=== PATIENT | male | born 1975 | race Caucasian/White ===

== ENCOUNTER 2024-08-08 18:51 | Inpatient (IN) | payer OTHER, SELFPAY ==
[2024-08-08] VITALS (9 sets, daily range): BP systolic 103–165; BP diastolic 87–126; BMI 31.0; BMI 31.4
--- NOTE | 2024-08-08 17:09 | ED.GENMED ---
History of Present Illness
General
Chief Complaint: Heart Rate Problem
Source: patient and spouse
Exam Limitations: none
Time Seen by Provider: 08/08/24 16:53
Nursing documentation reviewed up to this point in time: agreed with
History of Present Illness
History of Present Illness:
48-year-old male limited past medical history referred by his PCP for fast heart rate, A-fib, first visit there, patient's had 3 course of antibiotics for Lyme disease, states he has not quite recovered from that--no fevers had some indigestion last
night after eating Pasta, no shortness of breath, he vapes, uses caffeine no amphetamines, no cocaine he works in the [employer] industry does not drink alcohol no history of thyroid issue
Past History
Past History
ED Past Medical History: Negative Arrthythmia
ED Past Surgical History: Negative Cardiac
Social History
Tobacco: Non-smoker
Alcohol: None
Drug: None
Personal:
Living: with family
Employment: Employed
Review of Systems
Review of Systems
All Other Systems: Not applicable
Constitutional: Denies fever, weight loss or fatigue
EENT: Reports no symptoms
Respiratory: Reports no symptoms
Cardiac: Reports no symptoms
ABD/GI: Reports no symptoms
: Reports no symptoms
Musculoskeletal: Reports no symptoms
Skin: Reports no symptoms
Neurological: Reports no symptoms
Hematologic/Lymphatic: Reports no symptoms
Psychiatric: Reports no symptoms
Phy Exam
Physical Exam
Physical Exam:
Physical Exam
General: no apparent distress, not acutely ill
Neck: No goiter
Heart: Tachycardic
Lungs: no acute respiratory distress. clear bilaterally
Abdomen: Nontender
Neuro: alert and oriented. no focal neurological deficits
Skin: no rash
Psychiatric: well kept. interactive and cooperative
Extremities: no edema. no calf tenderness.
Course
Orders/Labs/Results
Orders:
Orders
08/08/24 16:22
Electrocardiogram (*1) Urgent
Reason for Study: Atrial Fibrillation
08/08/24 16:23
EKG- Treatment ONCE
08/08/24 17:06
Cardiac Monitoring- Treatment ONCE
Diltiazem HCl [Cardizem] 20 mg IV NOW STA
CR Chest - 2 Views Urgent
Comment:
Reason For Exam: hr 130
08/08/24 17:10
Complete Blood Count/With Diff Urgent
08/08/24 17:11
Comprehensive Metabolic Panel Urgent
Magnesium Urgent
NT-proBNP Urgent
PTT Urgent
Prothrombin Time Urgent
TSH Urgent
Troponin I Urgent
08/08/24 17:15
Diltiazem 125 mg/125 ml Nss [Cardizem] 125 mg in 125 ml IV PER PROTOCOL
Initial dose in mg/hr, then titrate:: 5
Titrate to keep:: Heart rate 80-100 bpm
Titrate by mg/hr:: 5 mg/hr
Frequency of titrations (minutes):: 15
Maximum dose in mg/hr:: 15
08/08/24 17:35
Heparin 4,000 units IV NOW STA
08/08/24 17:[address] Non Medication Order As Directed
Physician Order: PTT 6 hours after initial start of Heparin infusion
Above order entered?: Yes
08/08/24 17:45
Heparin 76247 Units/250 ml 25,000 units in 250 ml IV PER PROTOCOL
Weight to be used for heparin protocol in kilograms (kg):: 107.955
Protocol:: Cardiac Tx/Acute Coronary
PTT Goal Range to be used:: PTT 73 to 111 seconds
Order type:: Initial
INITIAL Infusion Dose (UNITS/KG/hr) & then follow protocol:: 12 units/kg/hr
Infusion Dose in UNITS/hr & then follow protocol (UNITS/hr):: 1,000
INFUSION RATE in mL/hr & then follow protocol (mL/hr):: 10
PTT less than or equal to 64 seconds:: Increase rate by 200 units/hr (+ 2 mL/hr)
PTT 64.1 to 72.9 seconds:: Increase rate by 100 units/hr (+ 1 mL/hr)
PTT 73 to 111 seconds:: Target Range. No change in rate.
PTT 111.1 to 130.9 seconds:: Decrease rate by 100 units/hr (- 1 mL/hr)
PTT 131 to 199.9 seconds:: HOLD for 1 hr. Then decrease rate by 200 units/hr (- 2 mL/hr)
PTT greater than or equal to 200 seconds:: HOLD for 2 hrs & Notify Provider. Then decrease by 200 units/hr (-
2 mL/hr)
Lab follow-up:: Each change, PTT q6h until 2 consecutive are therapeutic. Then PTT
daily.
08/08/24 18:30
Admit/Transfer Patient As Directed
Co-Sign Provider:
Level of Care: Inpatient admission
Assign to:: IVU
Physician / Group: brenna mcfarland
Diagnosis: atrial fib
Reason for Hospitalization: atrial fib
Expected length of stay greater than two midnights?: Yes
ELOS- Estimated Length of Stay in days: 3
I certify the patient meets the requirements for IP care: Yes
08/08/24 18:31
Code Status As Directed
Resuscitation Status: Full Code
PRN Pain Medication Management As Directed
May give lesser potent ordered pain med per pt: Yes
preference::
Protocol:: Medication orders for pain may be administered in a
manner that supports deferring to patient preference
when the pt is:
- Requesting an ordered lesser potent pain medication.
Least to most potent pain medications are defined
as: acetaminophen < NSAID < tramadol < opioids
(morphine, oxycodone, hydromorphone).
- Requesting a lesser dose of the same medication IF
ORDERED.
- Requesting a less intrusive route of administration
if both routes are prescribed by the provider (PO <
IV).
08/08/24 17:10
08/08/24 17:11
Vital Signs
Initial and Last Documented VS:
Initial Vital Signs
Temp Pulse Resp BP Pulse Ox
98.2 F 136 20 165/126 96
08/08/24 16:29 08/08/24 16:29 08/08/24 16:29 08/08/24 16:29 08/08/24 16:29
Last Documented Vital Signs
Temp Pulse Resp BP Pulse Ox
98.2 F 111 13 118/95 95
08/08/24 16:29 08/08/24 19:00 08/08/24 19:00 08/08/24 19:10 08/08/24 19:00
MDM/Problems Addressed
Differential Diagnosis Includes:
New onset A-fib SVT a flutter hyperthyroid toxic metabolic question related to Lyme
MDM/Problems Addressed:
Tachycardia
Chronic conditions affecting care:
Lyme
Acute Exacerbation and/or Progression of Chronic Illness:
Lyme
*Radiology
Radiology exam reviewed: preliminary read by ED provider
*Pulse Oximetry
Patient hypoxic: no
*EKG
Interpreted by ED Provider?: Yes
Interpretation: abnormal
Comparison EKG: no comparison EKG present
Heart Rate: 140
Rate: tachycardiac
Rhythm: a-fib
Ischemia: non-specific ST changes
*Field Crop Farming Supervisor Interpretation
Rate: tachycardiac
Interpretation: abnormal
Heart Rate: 140
Rhythm: a-fib
*Critical Care Note
Total Time (30-74mins, 75-104mins- exclusive of procedures): 30
ED Attending Note
-
Portions of this chart may have been created with voice recognition software.� Occasional wrong word or��sound alike� substitutions may have occurred due to the inherent limitations of voice recognition software.
Discharge Plan
Interventions
Interventions:
*Risk Screen - Suicide Last Done: 08/08/24 17:09
*General Assessment Last Done: 08/08/24 16:29
*Neglect/Abuse Screening Last Done: 08/08/24 17:09
*ED- Fall Risk Assessment Last Done: 08/08/24 17:09
*ED COVID-19 Vaccine History Last Done: 08/08/24 17:09
ED- Cardiac Assessment Last Done: 08/08/24 18:56
ED- Pulmonary Assessment Last Done: 08/08/24 18:56
[2024-08-08] MEDS: CARDIZEM 20 MG IV (17:16)
[2024-08-08 17:18] LABS: % Basophils 0.8 % (0-2); % Eosinophils 1.6 % (0-6); % Immature Granulocytes 0.4 % (0-0.5); % Monocytes 7.3 % (1.7-9.3); % Neutrophils 58.9 % (42.2-75.2); Absolute Basophils 0.1 10^3/uL (0-0.2); Absolute Eosinophils 0.1 10^3/uL (0-0.7); Absolute Lymphocytes 2.4 10^3/uL (1.2-3.4); Absolute Monocytes 0.6 10^3/uL (0.1-0.6); Absolute Neutrophils 4.5 10^3/uL (1.4-6.5); Hematocrit 43.4 % (39.0-52.0); Hemoglobin 15.7 g/dL (13.0-18.0); Mean Corp Hgb Conc. 36.2 g/dL (33.0-37.0); Mean Corpuscular Hgb 30.7 pg (27.0-31.0); Mean Corpuscular Volume 84.9 fL (80.0-94.0); Mean Platelet Volume 10.4 fL (7.4-10.4); Nucleated Red Blood Cells % 0 % (-); Platelet Count 175 10^3/uL (130-400); Red Blood Cell Count 5.11 10^6/uL (4.70-6.10); Red Cell Dist. Width 12.8 % (11.5-14.5); White Blood Cell Count 7.6 10^3/uL (4.8-10.8)
[2024-08-08] MEDS: CARDIZEM 125 IV (17:18)
[2024-08-08 17:28] LABS: INR 0.98; PT 13.3 Sec (11.4-14.6)
[2024-08-08 17:29] LABS: APTT 29.7 Sec (23.4-35.0)
[2024-08-08 17:34] LABS: ALT (SGPT) 40 U/L (0-50); AST (SGOT) 28 U/L (17-59); Albumin 4.9 g/dl (3.5-5.0); Alkaline Phosphatase 85 U/L (38-126); Blood Urea Nitrogen 13 mg/dl (9-20); Calcium 9.2 mg/dl (8.4-10.2); Carbon Dioxide 26 mmol/L (22-30); Chloride 105 mmol/L (98-107); Estimated Creatinine Clearance > 125 ml/min; Glucose 88 mg/dl (70-99); Magnesium 2.2 mg/dl (1.6-2.3); Potassium 3.7 mmol/L (3.5-5.1); Sodium 140 mmol/L (135-145); Total Bilirubin 0.7 mg/dl (0.2-1.3); Total Protein 7.6 g/dl (6.3-8.2); eGFR > 60.00
[2024-08-08 17:51] LABS: NT-proBNP 290 pg/ml; Troponin I < 0.012 ng/ml
--- NOTE | 2024-08-08 18:10 | HPS.HSE ---
Family Physician
-
Family Physician: Xi Hanson MD
Chief Complaint
-
fast heart rate
History of Present Illness
48-year-old male with no significant PMH presented to us with fast heart rate. Patient was diagnosed with Lyme disease back in October because they saw a bullous rash on his leg. he took 3 doses of doxycycline. Last dose was in December. Patient
stated lethargic, stiff neck and palpitation since December . Patient denies any headache, dizziness or syncope. Patient denies fever, chills, chest pain, short of breath. Patient denied abdominal pain, nausea, vomiting or diarrhea. Patient denies
dysuria hematuria . Patient so PCP for the first time . His heart rate was noted elevated .EKG obtained With impression of A-fib. Patient was asked to come to the ER.
Upon arrival patient was in A-fib with RVR. Cardizem and heparin started in ER. Admitted for further management
Medical History
Past Medical History
Past Medical History: Reports Other
Additional Past Medical History:
Lyme disease
Past Surgical History: Reports None
Social History
Tobacco: Vaping
Alcohol: None
Drug: None
Personal:
Living: With Family
Family History
Family History: Not pertinent
Allergies / Home Medications
Allergies reflects when Allergies were last updated in [facility].
Home Medications with original date entered in [facility]
Allergy/Medication List:
Allergies
Allergy/AdvReac Type Severity Reaction Status Date / Time
codeine Allergy Unknown Unknown Verified 08/08/24 17:07
Sulfa (Sulfonamide Allergy Unknown Unknown Verified 08/08/24 17:07
Antibiotics)
Home Medications
No Meds [No Current Medications] 08/08/24
Review of Systems
-
Constitutional: Reports Fatigue
EENT: Reports No Symptoms
Respiratory: Reports No Symptoms
Cardiac: Reports Palpitations
Abdomen/GI: Reports No Symptoms
: Reports No Symptoms
Musculoskeletal: Reports No Symptoms
Skin: Reports No Symptoms
Neurological: Reports No Symptoms
Endocrine: Reports No Symptoms
Hematologic/Lymphatic: Reports No Symptoms
Psych: Reports No Symptoms
Physical Exam
Vital Signs
Vital Signs
Temp Pulse Resp BP Pulse Ox
98.2 F 134 23 136/120 97
08/08/24 16:29 08/08/24 17:16 08/08/24 17:15 08/08/24 17:16 08/08/24 17:15
Physical Exam
General: Well Developed, Well Nourished and No Apparent Distress
HEENT: NormoCephalic, Moist mucous membranes and Atraumatic
Respiratory: Clear
Cardiac: Irregular Rhythm and Tachycardia; No Murmur or Rub
GI: Soft, Non Tender, Non Distended and Normal Bowel Sounds; No Organomegaly
Rectal: Deferred by Provider
Musculoskeletal: No Clubbing, No Cyanosis and No Edema
Skin: No Rash
Neuro: AO x 3 and Nonfocal/grossly intact
Psych: Calm
Laboratory Results
-
08/08/24 17:10
08/08/24 17:11
Laboratory Results
PT 13.3 Sec (11.4-14.6) 08/08/24 17:11
INR 0.98 08/08/24 17:11
APTT 29.7 Sec (23.4-35.0) 08/08/24 17:11
Total Bilirubin 0.7 mg/dl (0.2-1.3) 08/08/24 17:11
AST 28 U/L (17-59) 08/08/24 17:11
ALT 40 U/L (0-50) 08/08/24 17:11
Alkaline Phosphatase 85 U/L (38-126) 08/08/24 17:11
Troponin I < 0.012 ng/ml 08/08/24 17:11
Data Reviewed
-
Lab Data: Labs Reviewed by me
Impression/Plan
-
# A-fib with RVR
-EKG with A-fib with variable AV block and rapid ventricular rate
-IV Cardizem and heparin drip in ER
-obtain ECHO
-Cardiology consulted
# DVT prophylaxis
-Heparin drip
# CODE STATUS
-Full code
[2024-08-08] MEDS: HEPARIN 4000 UNITS IV (19:05)
[2024-08-08] MEDS: HEPARIN 25000 UNITS/250 ML IV (19:06)
--- NOTE | 2024-08-08 19:13 | W.PN.UPDATE ---
Update Note
Progress Note Update
This note serves as an addendum to the H&P by mid level clinician JESE Pauline RANGEL
HPI
48M HX Vaping, Dxed Lyme dz in October 2023, s/p PO Doxy , last dose in December 2023 no significant PMH seen at ER
- pw fast heart rate. Patient was diagnosed with Lyme disease back in October. Last dose was in December.
- Patient so PCP for the first time and noted fast HR. EKG POS for fast AF. Thus sent to ER
ROS:
denies fever, chills, chest pain, short of breath. Patient denied abdominal pain, nausea, vomiting or diarrhea. Patient denies dysuria hematuria .
Vital Signs
Temp Pulse Resp BP Pulse Ox
98.2 F 111 10 118/95 96
08/08/24 16:29 08/08/24 18:30 08/08/24 18:30 08/08/24 19:10 08/08/24 18:56
PE
Gen: NAD
HEENT: anicteric
Neck:
Lungs: CTA
Cor: Irregular Rhythm and Tachycardia; No Murmur
Abdomen: Soft, Non Tender, Non Distended
METAL TILE SETTER: AAO3
MS: no edma
Psych: calm
Data
Unremarkable labs
NEG TPNI and . Insignificant pro BNP
08/08/24
17:11
Troponin I < 0.012
Xbh-G-[id number] Pept 290
EKG
ATRIAL FLUTTER WITH VARIABLE A-V BLOCK and rapid ventricularrate
LEFT AXIS DEVIATION
NON-SPECIFIC INTRA-VENTRICULAR CONDUCTION BLOCK
MINIMAL VOLTAGE CRITERIA FOR LVH, MAY BE NORMAL VARIANT ( Florencio product )
INFERIOR INFARCT , AGE UNDETERMINED
T WAVE ABNORMALITY, CONSIDER ANTEROLATERAL ISCHEMIA
ABNORMAL ECG
NO PREVIOUS ECGS AVAILABLE
Confirmed by SHEBA CONTI MD, EMMA ([id number]) on 08/08/2024 6:05:11 PM
NO PRIOR hospitalist admission:
ASSESSMENT & PLAN
New onset Prx AF with RVR A-fib with RVR
-EKG with A-fib with variable AV block and rapid ventricular rate
-IV Cardizem gtt
- Heparin gt
- obtain ECHO
- DCA card consulted
OFF NOTE: He wants to attend of friend at 11 am Thursday. He seems determine to attend
HX Lyme's dz in October 2023 following onset of rash ( target lesions like ? ) and evaluation
Report S/p 4 weeks each x 3 courses of PO Doxycycline , October, November and December
DVT Px: on Heparin gtt
Ful code
IVU
--- NOTE | 2024-08-08 20:40 | PTCARENOTE ---
Rec'd report from ED RN; Rec'd pt AAOx3 w/no c/o CP or SOB. Pt able to ambulate unassisted into the rm. Pt w/IV Cardizem and IV Heparin infusing through patent IV lines as ordered. Pt is A-flutter on telemetry monitoring. Pt oriented to rm & given
Afib book. Pt w/call rutledge within reach & plan of care ongoing.
[2024-08-09 04:28] VITALS: BMI 31.5
[2024-08-09 04:33] VITALS: BP 110/91
[2024-08-09] MEDS: CARDIZEM 125 IV (05:28)
--- NOTE | 2024-08-09 06:40 | W.PN.HOSP.TC ---
Addendum entered and electronically signed by Wendi Pedersen MD 08/09/24 15:06:
Addendum
Patient underwent cardioversion, currently sinus rhythm and requesting to go home.
I went over discharge directions with patient, his at bedside. Counseled regarding compliance with medications. Explained potential side effects for each medication and he verbalized understanding. Given prescription to do blood work in 1 to
2 weeks to monitor renal function and potassium level.
Patient said that he would definitely take Eliquis, he was not sure about Toprol and lisinopril. Patient feels that healthy lifestyle modification is his first approach before starting medications. Explained importance of treating cardiomyopathy
and a flutter. Patient verbalized understanding and remained stable hemodynamically.
Total discharge time spent to see the patient, examine the patient, review data and lab results, discuss discharge plan with patient, , centrifuge separator operator nursing staff around 7minutes
Original Note:
Today's Communication/Plan
-
keep NPO for now
c/w Cardizem & heparin gtt
Echo of heart
Assessment / Plan
Assessment / Plan
Physical Exam
General: Well Developed, Well Nourished and No Apparent Distress
HEENT: Normocephalic, Moist mucous membranes and Atraumatic
Respiratory: Clear
Cardiac: Irregular Rhythm and Tachycardia; Split heart sound/ gallop rhythm
GI: Soft, Non Tender, Non Distended and Normal Bowel Sounds
Musculoskeletal: No Clubbing, No Cyanosis and No Edema
Skin: No Rash
Neuro: AO x 3 and Nonfocal/grossly intact
Psych: Calm
# New onset A-fib with RVR
-EKG with Atrial flutter with variable AV block and rapid ventricular rate
Heart rate still uncontrolled mostly
-IV Cardizem and heparin drip in ER
[id number] around 0 with no hx of HTN in past.
Patient reports Lyme disease diagnosis in November 2023.
Order echo
Normal TSH
No fever
CXR no pulmonary edema
-Cardiology consulted
# HTN urgency , resolving
on Cardizem gtt
# DVT prophylaxis
-Heparin drip
# CODE STATUS
-Full code
Total time spent to see the patient, examine the patient,review data and lab results, discuss treatment plan with pt, nursing staff around 55 minutes
Anticipated Discharge: 24 - 48 hours
Subjective/Interval History
-
Date of Service: August 09, 2024
No chest pain or sob
Feels racing heart beats
Objective Data
-
Labs:
Laboratory Results
08/09/24 08/09/24
01:03 07:30
APTT 31.0 Pending
Vital Signs:
Vital Signs
Temp Pulse Resp BP Pulse Ox
97.6 F 102 16 110/91 96
08/09/24 04:28 08/09/24 04:33 08/09/24 04:28 08/09/24 04:33 08/09/24 04:33
I&O
08/07/24 08/08/24 08/09/24
06:59 06:59 06:59
Intake Total 960 / 960
Balance 960 / 960
[2024-08-09 08:14] LABS: APTT 53.4 Sec (23.4-35.0)
[2024-08-09 08:21] VITALS: BP 123/91
--- NOTE | 2024-08-09 08:55 | PTCARENOTE ---
Assumed care. Patient NPO. Anxious about being discharged today. Afib HR 80-100's. Cardizem and Heparin gtt. VSS, family at bedside
--- NOTE | 2024-08-09 09:14 | CON.CAR ---
Addendum entered and electronically signed by Scott Enriquez MD 08/09/24 13:38:
Patient underwent successful ELBA/direct-current cardioversion with oriental orthodox of normal sinus rhythm.
Left ventricular systolic function was moderately reduced at the time of ELBA.
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 Will discharge on Toprol and lisinopril. Can discuss ischemic evaluation at follow-up.
Eventual repeat echo to reassess LV function.
Should continue Eliquis for minimum 1 month following cardioversion.
Addendum entered and electronically signed by Scott Enriquez MD 08/09/24 10:51:
I saw and examined the patient.
The Cable Splicing Technician's note was reviewed and I agree with the note.
Comment: Briefly, 48-year-old man with no significant past medical history who presents with atrial flutter with rapid ventricular response.
Patient tells me that he was establishing care with a primary care physician, reports he was last seen 15 years ago, and was found to be tachycardic in the office. ECG there identified atrial flutter with rapid ventricular response and he was
referred to [facility] emergency department for further evaluation. He was started appropriately on diltiazem and heparin drips and admitted to the IVU overnight.
Patient tells me he is asymptomatic in rapid atrial flutter, not experiencing any palpitations, dyspnea or lower extremity edema.
Rates have been difficult to control here, would recommend direct-current cardioversion to restore sinus rhythm. As duration of atrial flutter is unclear we will plan for ELBA prior to assess for intracardiac thrombus.
Would recommend discharging on oral anticoagulation for minimum 1 month ([id number] equals 0)
Discussed CTI ablation, can be discussed further as an outpatient
Discussed with patient and family at bedside
Original Note:
Consultation
Consultation Request
Date/Time Consultation Performed: 08/09/24
Requesting Provider: Dr. Pedersen
Performing Provider: Isabel Ray PA-C for Dr. Enriquez
Reason for Consultation: aflutter
Medical History
-
Chief Complaint: aflutter
History of Present Illness:
Patient is a 48-year-old male with past medical history of Lyme disease diagnosed 10/2023 status post 3 courses of doxycycline. He reports starting in December 2023 he noted elevated heart rate, however was not seen by a physician for this until
yesterday when he was establishing care with a primary care provider. He was noted by EKG to be in a flutter with RVR and was referred to the ER for further evaluation. He denies chest pain, shortness of breath, lower extremity edema, fevers. He
denies history of thyroid disease. He denies significant caffeine intake or alcohol use. He does vape but denies drug use. Cardiology consulted for evaluation.
PMH:
History of Lyme disease 10/2023
History of slipped capital femoral epiphysis
History of multiple concussions
Vapes nicotine
Past Medical History
Past Medical History: Other (in HPI)
Social History
Tobacco: Vaping
Alcohol: None
Personal:
Living: With Family
Employment: Employed
Family History
Family History: Reviewed & Not Pertinent
Allergies / Home Medications
Allergy/AdvReac Type Severity Reaction Status Date / Time
codeine Allergy Unknown Unknown Verified 08/08/24 17:07
Sulfa (Sulfonamide Allergy Unknown Unknown Verified 08/08/24 17:07
Antibiotics)
�Medication �Instructions �Recorded �Confirmed �Type
No Meds [No Current Medications] 08/08/24 08/08/24 History
Review of Systems
-
History Source: Patient and Family
All other systems: Negative unless noted
Physical Exam
Vital Signs
Temp Pulse Resp BP Pulse Ox
97.7 F 86 18 123/91 96
08/09/24 08:20 08/09/24 08:30 08/09/24 08:20 08/09/24 08:21 08/09/24 08:21
Lab Results
08/08/24 17:10
08/08/24 17:11
Troponin I < 0.012 ng/ml 08/08/24 17:11
Gju-X-Pxxmndtkbsa Pept 290 pg/ml 08/08/24 17:11
Physical Exam
General: No Apparent Distress and Comfortable
HEENT: Normocephalic, Anicteric and Moist Mucous Membranes
Respiratory: Clear and Non Labored Respirations
Cardiac: S1/S2 and Irregular Rhythm
GI: Non Tender, Non Distended and Normal Bowel Sounds
Musculoskeletal: No Clubbing, No Cyanosis and No Edema
Skin: Warm and Dry
Neuro: AO x 3
Impression / Plan
-
[employer] Sales Consultant: none prior to admission
Assessment:
Typical atrial flutter with RVR
History of Lyme disease 10/2023
History of slipped capital femoral epiphysis
History of multiple concussions
Vapes nicotine
ECHO 08/09/24: pending
Plan:
-Patient was referred from primary care provider's office due to atrial flutter with RVR
-Continue IV heparin. [id number] score of 0.
-Continue IV Cardizem, remains in atrial flutter with elevated HRs
-discussed ELBA/CV with patient and will plan to proceed today. NPO
-check echo
-Trop negative x1
-TSH WNL
-would consider for OP stress testing
-discussed OP EP follow up to discuss aflutter ablation.
-d/w nursing
-d/w patient and family at bedside
Data Reviewed
-
EKG: Tracing Personally Visualized and interpreted
Labs: Labs Reviewed by me
Old Records: Reviewed
[2024-08-09 11:03] VITALS: BP 119/88
--- NOTE | 2024-08-09 12:09 | PTCARENOTE ---
Report given earlier, patient sent to the agriculture laboratory technician
--- NOTE | 2024-08-09 13:53 | W.PN.UPDATE ---
Update Note
Progress Note Update
Patient underwent successful ELBA/cardioversion. He was noted by ELBA to have EF of 35 to 40%, suspected tachycardia mediated as he believes he went into a flutter in December 2023. Toprol and lisinopril have been added to be continued upon discharge.
For at least 30 days post cardioversion he will need Eliquis 5 mg twice daily. Will transition patient this afternoon from IV heparin. His admitted that patient does drink multiple energy drinks daily. He has been counseled to avoid excess
caffeine as well as significant salt intake. Reviewed results of ELBA with patient and family. Also discussed vaping cessation. Outpatient cardiac follow-up with EP has been arranged. Would consider for outpatient ischemic eval followed by
flutter ablation. Okay for discharge later today. Discussed with nursing
[2024-08-09 13:54] VITALS: BP 122/94
[2024-08-09 14:00] VITALS: BP 118/88
--- NOTE | 2024-08-09 14:14 | PTCARENOTE ---
Patient received from general laborer awake and alert. NSR HR 60's, BP 118/88, POX 100 room air. Heparin gtt infusing at 1400 units/hr. Plan of care reviwed, call rutledge in reach
[2024-08-09 14:57] VITALS: BP 128/87
[2024-08-09] MEDS: ELIQUIS 5 MG PO (15:09)
[2024-08-09] MEDS: ZESTRIL 5 MG PO (15:09)
[2024-08-09] MEDS: TOPROL XL 25 MG PO (15:10)
--- NOTE | 2024-08-09 15:11 | W.DCSUMMARY ---
Discharge Summary
Discharge Data
Date of Admission: 08/08/24
Date of Discharge: 08/09/24
-
Pending Results: No
Hospital Course
48 years old male presented with elevated heart rate. Patient knew he had elevated heart rate at times since few months ago. He denies chest pain. He denies shortness of breath or leg edema. No history of fever or chills. Patient was found to
have atrial flutter. Research Technician was consulted. Thyroid-stimulating hormone was normal. Patient was started on intravenous heparin and intravenous Cardizem. He had negative troponin. Patient had successful ELBA/cardioversion. He converted to
sinus rhythm. Transesophageal cardiogram showed left ventricular ejection fraction of 35 to 40%. 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 Patient was started on low-dose Toprol, lisinopril and Eliquis. Patient was made aware that he
would need to take Eliquis for at least 30 days post cardioversion. Patient was counseled regarding potential side effects of Toprol, lisinopril and Eliquis. He verbalized understanding. Discharge instructions were discussed with patient his
at bedside. Patient expressed possible he that he might not start Toprol and lisinopril in favor of stopping vaping and healthy lifestyle modification. Patient was advised to do blood work in 1 to 2-week to monitor renal function and potassium.
Patient was advised to to see his a primary care doctor and monitor her blood pressure and heart rate at home. Patient was set up for outpatient cardiology follow-up. Patient remained hemodynamically stable and was discharged home in a stable
condition.
Discharge Plan
-
Patient Disposition: Home (Routine Discharge)
Discharge Diagnosis/Procedures: Atrial flutter
Cardiomyopathy
New medications as follow
Toprol, beta-landy, potential side effect of bradycardia, hypotension and fatigue
Lisinopril, LIZANDRO inhibitor, potential side effects include hypotension, hyperkalemia, renal injury, cough, angioedema.
Eliquis, blood thinner, potential side effects include bleeding.
Diet: Low Sodium
Blood Work: BMP in 1-2 weeks
Specialty Instructions: Weigh Daily- Call MD for wt gain/loss 3 lbs overnight/5 lbs in 1 week
Referrals:
Xi Hanson MD [Family Provider] - in one to two weeks
Aaron Hood DO [Active] - 08/22/24 1:00 pm (You have a cardiology follow-up appointment at the [place] office. Please call with questions)
Prescriptions:
New
Eliquis 5 mg Tablet
5 mg PO BID Qty: 60 0RF
lisinopril 5 mg Tablet
5 mg PO DAILY Qty: 30 0RF
metoprolol succinate 25 mg Tablet Extended Release 24 Hr
25 mg PO DAILY Qty: 30 0RF
No Action
No Current Medications
0
Discharge Orders:
Discharge Patient (As Directed); Ordered 08/09/24
Ordered By: Wendi Pedersen
Discharge Date and Time
Print Language: LITHUANIAN
--- NOTE | 2024-08-09 15:22 | PTCARENOTE ---
Patient discharged to home. IV and telemetry removed. Instructions gven, patient verbalized understanding. Spouse will take patient home today
--- NOTE | 2024-08-09 15:53 | CM ---
CM following for DC planning needs.
Met w/ patient at bedside to complete initial assessment.
Pt. resides w/ spouse in a private home. He is functionally indep. w/ ADLs, mobility without the use of any assisted device.
DC plan is for home, no needs.
Did call [facility] to [employer] Eliquis; Eliquis is $0 and in stock. I notified patient of this.
DC home, no needs.
== END 2024-08-09 15:50 | disposition home or self-care (01) | DRG 310 ==
LOC: IVU 18:51
PROVIDERS: Internal Medicine Cardiovascular Disease; ADMITTING PHYSICIAN Internal Medicine; ATTENDING PHYSICIAN Internal Medicine; EMERGENCY PHYSICIAN Emergency Medicine; FAMILY PHYSICIAN Student in an Organized Health Care Education/Training Program; OTHER PHYSICIAN Internal Medicine Cardiovascular Disease
PROC: B24BZZ4 Ultrasonography of Heart with Aorta, Transesophageal (ICD-10-PCS; 2024-08-09)
PROC: 5A2204Z Restoration of Cardiac Rhythm, Single (ICD-10-PCS; 2024-08-09)
DX: I48.3 Typical atrial flutter (principal); I42.9 Cardiomyopathy, unspecified; Z86.19 Personal history of other infectious and parasitic diseases; I48.91 Unspecified atrial fibrillation; Z88.2 Allergy status to sulfonamides; Z88.5 Allergy status to narcotic agent; F17.290 Nicotine dependence, other tobacco product, uncomplicated; I44.30 Unspecified atrioventricular block; Z87.820 Personal history of traumatic brain injury
CPT/HCPCS: 71046; 80053; 83735; 83880; 84443; 84484; 85025; 85610; 85730; 92960; 93005; 93312; 93320; 93325; 96374; 99291

== ENCOUNTER → 2024-08-29 13:33 | Outpatient (REF) | payer OTHER, SELFPAY | LOC: RCS 13:33 | PROVIDERS: ATTENDING PHYSICIAN Internal Medicine Cardiovascular Disease; FAMILY PHYSICIAN Physician Assistant | DX: I42.9 Cardiomyopathy, unspecified (principal) | CPT/HCPCS: 93017 ==

== ENCOUNTER → 2024-09-14 14:03 | Outpatient (REF) | payer OTHER, SELFPAY | LOC: DHSLP 14:03 | PROVIDERS: ATTENDING PHYSICIAN Internal Medicine Cardiovascular Disease; FAMILY PHYSICIAN Physician Assistant | DX: G47.33 Obstructive sleep apnea (adult) (pediatric) (principal) | CPT/HCPCS: 95810 ==

== ENCOUNTER → 2024-10-13 07:54 | Outpatient (REF) | payer OTHER, SELFPAY | LOC: RCS 07:54 | PROVIDERS: ATTENDING PHYSICIAN Internal Medicine Cardiovascular Disease; FAMILY PHYSICIAN Physician Assistant | DX: I42.9 Cardiomyopathy, unspecified (principal) | CPT/HCPCS: 93306 ==